=== PATIENT | male | born 1995 | race Two or more races ===

== ENCOUNTER 2024-02-16 04:02 | Emergency (ER) | payer OTHER ==
[~2024-02-16] VITALS: Ht 175.3 cm; Wt 87.1 kg
[2024-02-16 04:46] LABS: HEMATOCRIT 37.9 % (39.0-48.0); MEAN CORPUSCULAR HEMOGLOBIN 28.1 pg (27.00-32.0); MEAN CORPUSCULAR HGB CONC 34.2 g/dl (32.0-36.0); PLATELET COUNT 280 K/uL (150-450); RED BLOOD COUNT 4.62 M/uL (4.00-6.00); RED CELL DISTRIBUTION WIDTH 12.9 % (11.5-14.5)
[2024-02-16 05:06] LABS: ALBUMIN 3.7 gm/dL (3.4-5.0); BILIRUBIN TOTAL 0.41 mg/dL (0.3-1.2); CALCIUM 9.1 mg/dL (8.5-10.1); CREATININE SERUM 1.23 mg/dL (0.70-1.30); GFR 70.59; GLOBULINA 4.3 G/DL (2.4-3.5); POTASSIUM 3.74 mEq/L (3.5-5.1)
== END 2024-02-16 08:07 ==
LOC: ER 04:02
PROVIDERS: General Practice
DX: R42 Dizziness and giddiness (principal); R07.89 Other chest pain